=== PATIENT | female | born 1960 | race Caucasian/White ===

== ENCOUNTER → 2017-01-06 | Outpatient (CLI) | payer MEDICARE ==
[~2017-01-06] MED LIST: ATENOLOL25 MG PO; BACTRIM DS 8001 TAB PO; BUFFERIN PO; HYDROCODONE1 TABLET PO; LIPITOR20 MG PO; PHENERGAN 25MG.25 M1 PO; PLAVIX75 MG PO; ZETIA10 MG PO
[2017-01-06 09:12] LABS: BUN 13 mg/dL (7-18); GFR (ESTIMATED) 64 ML/MIN (59-)
== END ==
LOC: LAB 07:39
PROVIDERS: Nurse Practitioner Family
DX: E78.5 Hyperlipidemia, unspecified (principal)

== ENCOUNTER 2017-07-30 08:53 | Emergency (ER) | payer MEDICARE ==
[~2017-07-30] VITALS: Ht 157.5 cm; Wt 52.3 kg
[~2017-07-30 08:53] MED LIST changes: +ALENDRONATE SOD70 M1 PO; +ASPIRIN ADULT L81 M2 PO; +BENZONATATE200 MG PO; +ELIQUIS5 MG PO; +LEVAQUIN500 MG PO; +LEVOTHYROXINE0.05 MG NG; +LINZESS290 MCG PO; +PANTOPRAZOLE SO40 MG PO; +PREDNISONE 20MG20 MG PO; +PROVENTIL0.09 MG/A1 IH; +ROSUVASTATIN CA40 MG PO
--- OUTSIDE RECORDS SUMMARY | 2017-07-30 08:57 | External Medical Summary Rpt | CCD ---
Author Author , TYREL SARAH Address Unknown Phone [email or web address] Immunization Name Date Rout CVX Reac Dose Comm Prov Is Faci e tion ent ider Refu lity Give sed n Infl 10-2 Intr 150 0.5 Hist WALM No WALM uenz 5-20 amus mL oric ART5 ART5 a 17 cula al 91 91 Quad r Info Inj rmat ion - Sour ce Unsp ecif ied
--- OUTSIDE RECORDS SUMMARY | 2017-07-30 08:57 | External Medical Summary Rpt | CCD ---
Author Author , TYREL SARAH Address Unknown Phone [email or web address] Immunization Name Date Rout CVX Reac Dose Comm Prov Is Faci e tion ent ider Refu lity Give sed n Infl 10-2 Intr 150 0.5 Hist WALM No WALM uenz 5-20 amus mL oric ART5 ART5 a 17 cula al 91 91 Quad r Info Inj rmat ion - Sour ce Unsp ecif ied
--- OUTSIDE RECORDS SUMMARY | 2017-07-30 08:57 | External Medical Summary Rpt | CCD ---
Author Author , TYREL SARAH Address Unknown Phone [email or web address] Purpose Continuity of Care Document - 04-14-2016 through 2016 Problems Code Diagnosis DOS Provider Status I48.0 Paroxysmal atrial fibrillatio n I48.91 Unspecified atrial fibrillatio n R00.2 Palpitation s Z13.6 Encounter for screening for cardiovascu lar disorders Z86.73 Personal history of transient ischemic attack (TIA), and cerebral infarction without residual deficits Z86.79 Personal history of other diseases of the circulatory system Z98.89 Other specified postprocedu ral states
--- OUTSIDE RECORDS SUMMARY | 2017-07-30 08:57 | External Medical Summary Rpt | CCD ---
Author Author , TYREL SARAH Address Unknown Phone [email or web address] Purpose Continuity of Care Document - 04-14-2016 [...]
--- OUTSIDE RECORDS SUMMARY | 2017-07-30 08:58 | External Medical Summary Rpt ---
Author Author TYREL Strauss, [employer] Organization [employer] Address Unknown Phone Unavailable Results Comprehensive metabolic 2000 panel in Serum or Plasma Observa Value Referen Units Interpr Notes Date tion ce etation Range Albumin/G 1.1 - 1.8 No Normal No January 06 lobulin informati informati 2016 7:39 [Mass on in on in AM ratio] in source source Serum or data data Plasma Albumin 3.4 - 5.0 gm/dL Normal No January 06 [Mass/vol informati 2016 7:39 ume] in on in AM Serum or source Plasma data Alkaline 46 - 116 U/L Normal No January 06 phosphata informati 2016 7:39 se on in AM [Enzymati source c data activity/ volume] in Serum or Plasma Bilirubin 0.2 - 1.0 mg/dL Normal No January 06 .total informati 2016 7:39 [Mass/vol on in AM ume] in source Serum or data Plasma Urea 7 - 18 mg/dL Normal No January 06 nitrogen informati 2016 7:39 [Mass/vol on in AM ume] in source Serum or data Plasma Calcium 8.5 - mg/dL Normal No January 06 [Mass/vol 10.1 informati 2016 7:39 ume] in on in AM Serum or source Plasma data Chloride 98 - 107 mmoL/L Normal No January 06 [Moles/vo informati 2016 7:39 lume] in on in AM Serum or source Plasma data Carbon 21.0 - mmoL/L Normal No January 06 dioxide, 32.0 informati 2016 7:39 total on in AM [Moles/vo source lume] in data Serum or Plasma Creatinin 0.55 - mg/dL Normal No January 06 e 1.02 informati 2016 7:39 [Mass/vol on in AM ume] in source Serum or data Plasma Estimated 59- ML/MIN No REFERENCE January 06 informati RANGE: 2017 7:39 glomerula on in >60 AM r source ML/MIN/1. filtratio data 73 SQUARE n rate METERSIf (GF this patient is -A merican, then multiply theresult by 1.210. Globulin 1.3 - 3.2 gm/dL Normal No January 06 [Mass/vol informati 2016 7:39 ume] in on in AM Serum source data Glucose 74 - 106 mg/dL Normal No January 06 [Mass/vol informati 2016 7:39 ume] in on in AM Serum or source Plasma data Potassium 3.5 - 5.1 mmoL/L Normal No January 06 informati 2016 7:39 [Moles/vo on in AM lume] in source Serum or data Plasma Sodium 136 - 145 mmoL/L Normal No January 06 [Moles/vo informati 2016 7:39 lume] in on in AM Serum or source Plasma data Aspartate 15 - 37 U/L Normal No January 06 informati 2016 7:39 aminotran on in AM sferase source [Enzymati data c activity/ volume] in Serum or Plasma Alanine 12 - 78 U/L Normal No January 06 aminotran informati 2016 7:39 sferase on in AM [Enzymati source c data activity/ volume] in Serum or Plasma Protein 6.4 - 8.2 gm/dL Normal No January 06 [Mass/vol informati 2016 7:39 ume] in on in AM Serum or source Plasma data Lipid 1996 panel in Serum or Plasma Observa Value Referen Units Interpr Notes Date tion ce etation Range Cholester < 200 mg/dL No No January 06 ol informati informati 2016 7:39 [Moles/vo on in on in AM lume] in source source Unspecifi data data ed specimen Cholester 40 - 60 MG/DL Normal No January 06 ol in HDL informati 2016 7:39 on in AM [Mass/vol source ume] in data Serum or Plasma Cholester 0 - 130 mg/dL Normal No January 06 ol in LDL informati 2016 7:39 on in AM [Mass/vol source ume] in data Serum or Plasma by calcaston on Triglycer 30 - 200 mg/dL Normal No January 06 marcelo informati 2016 7:39 [Moles/vo on in AM lume] in source Serum or data Plasma Cholester 0 - 40 No Normal No January 06 ol in informati informati 2016 7:39 VLDL on in on in AM [Mass/vol source source ume] in data data Serum or Plasma EK EKG 12 LEAD Observa Value Referen Units Interpr Notes Date etation Range Station No No No No Apr 22 jurgen ECG informa informa informa informa 2016 tion in in in in 7:33 PM Study\. source source source source br\St. data data data data Elizabe th [employer] d\.br\I nterpre tive Stateme nts\.br \SINUS RHYTHM\ .br\MOD ERATE T-WAVE ABNORMA LITY, CONSIDE R INFERIO R/ANTER IOR ISCHEMI A\.br\E lectron ically Signed On 04-22-20 19:55:2 3 EDT by Venancio Hutchinson MD ELECTROPHYSIOLOGY PROCEDURE Observa Value Referen Units Interpr Notes Date etation Range This is No No No No Apr 22 a informa informa informa informa 2016 summary tion in in in in 6:44 PM source source source source report. data data data data The complet e report is availab le in the patient 's medical record. If you cannot access the medical record, please contact the [facility] for a detaile d fax or copy.\. br\\.br \ AF Ablatio n: PVAI\.b r\ Second RF ablatio n for atrial focus -> coronar y sinus AT\.br\ Normal H-V interva l\.br\ VA conduct ion is present EK EKG 12 LEAD Observa Value Referen Units Interpr Notes Date etation Range Station No No No No Apr 22 jurgen ECG informa informa informa informa 2016 tion in in in in 6:39 PM Study\. source source source source br\St. data data data data Elizabe th [employer] d\.br\I nterpre tive Stateme nts\.br \SINUS RHYTHM\ .br\ST DEVIATI ON AND MODERAT E T-WAVE ABNORMA LITY, CONSIDE R ANTEROL ATERAL ISCHEMI A\.br\S T DEVIATI ON AND MODERAT E T-WAVE ABNORMA LITY, CONSIDE R INFERIO R ISCHEMI A\.br\E lectron ically Signed On 04-22-20 16 19:53:3 6 EDT by Venancio Hutchinson MD ACT POC Observa Value Referen Units Interpr Notes Date tion ce etation Range ACT-LR 349 89 - second( High No Aug 30 169 s) informa 2016 tion in 5:16 PM source data ACT POC Observa Value Referen Units Interpr Notes Date tion ce etation Range ACT-LR 366 89 - second( High No Aug 30 169 s) informa 2016 tion in 4:59 PM source data ACT POC Observa Value Referen Units Interpr Notes Date tion ce etation Range ACT-LR 371 89 - second( High No Aug 30 169 s) informa 2016 tion in 4:40 PM source data ACT POC Observa Value Referen Units Interpr Notes Date tion ce etation Range ACT-LR 381 89 - second( High No Aug 30 169 s) informa 2016 tion in 4:22 PM source data ACT POC Observa Value Referen Units Interpr Notes Date tion ce etation Range ACT-LR 253 89 - second( High No Aug 30 169 s) informa 2016 tion in 4:06 PM source data ACT POC Observa Value Referen Units Interpr Notes Date tion ce etation Range ACT-LR 358 89 - second( High No Aug 30 169 s) informa 2016 tion in 3:50 PM source data ACT POC Observa Value Referen Units Interpr Notes Date tion ce etation Range ACT-LR 341 89 - second( High No Aug 30 169 s) informa 2016 tion in 3:32 PM source data ACT POC Observa Value Referen Units Interpr Notes Date tion ce etation Range ACT-LR 326 89 - second( High No Aug 30 169 s) informa 2016 tion in 3:16 PM source data Auto Diff Observa Value Referen Units Interpr Notes Date tion ce etation Range Neutrop 56.1 No % No No Mar 30 hils informa informa informa 2016 [#/volu tion in tion in tion in 11:29 me] in source source source AM Blood data data data by Automat ed count Lymphoc 29.1 No % No No Apr 22 ytes informa informa informa 2016 [#/volu tion in tion in tion in 11:29 me] in source source source AM Blood data data data by Automat ed count Monocyt 6.6 No % No No Aug 30 es informa informa informa 2015 [#/volu tion in tion in tion in 11:29 me] in source source source AM Blood data data data by Automat ed count Eos 7.3 No % No No Mar 30 Percent informa informa informa 2016 tion in tion in tion in 11:29 source source source AM data data data Baso 0.9 No % No No Mar 30 Percent informa informa informa 2016 tion in tion in tion in 11:29 source source source AM data data data Neut# 5.2 1.8 - x10(3)/ No No Mar 30 7.7 mcL informa informa 2016 tion in tion in 11:29 source source AM data data Lymph# 2.7 0.6 - x10(3)/ No No Mar 30 4.8 mcL informa informa 2016 tion in tion in 11:29 source source AM data data [place]# 0.6 0.0 - x10(3)/ No No Mar 30 1.3 mcL informa informa 2015 tion in tion in 11:29 source source AM data data Eos# 0.7 0.0 - x10(3)/ High No Mar 30 0.5 mcL informa 2015 tion in 11:29 source AM data Baso# 0.1 0.0 - x10(3)/ No No Mar 30 0.2 mcL informa informa 2016 tion in tion in 11:29 source source AM data data CBC Observa Value Referen Units Interpr Notes Date tion ce etation Range Do not repeat if done in the past 10 days. LEUKOCY 9.2 4.0 - x10(3)/ No No Mar 30 LU 11.0 mcL informa informa 2015 tion in tion in 11:29 source source AM data data Erythro 4.36 3.80 - x10(6)/ No No Mar 30 cytes 5.10 mcL informa informa 2015 [#/volu tion in tion in 11:29 me] in source source AM Blood data data by Automat ed count Hemoglo 13.6 12.0 - gm/dL No No Mar 30 bin 15.6 informa informa 2015 [Mass/v tion in tion in 11:29 olume] source source AM in data data Blood Hematoc 40.4 35.7 - % No No Apr 22 rit 45.9 informa informa 2016 [Volume tion in tion in 11:29 source source AM Fractio data data n] of Blood by Automat ed count Erythro 92.8 82.5 - fL No No Apr 22 cyte 99.8 informa informa 2016 mean tion in tion in 11:29 corpusc source source AM ular data data volume [Entiti c volume] by Automat ed count Erythro 31.1 27.0 - pg No Apr 22 cyte 34.3 informa informa 2016 mean tion in tion in 11:29 corpusc source source AM ular data data hemoglo bin [Entiti c mass] by Automat ed count Erythro 33.6 32.1 - gm/dL No Apr 22 cyte 35.3 informa informa 2016 mean tion in tion in 11:29 corpusc source source AM ular data data hemoglo bin concent ration [Mass/v olume] by Automat ed count Erythro 13.3 11.5 - % No Apr 22 cyte 15.0 informa informa 2016 distrib tion in tion in 11:29 ution source source AM width data data [Ratio] by Automat ed count Platele 257 144 - x10(3)/ No No Apr 22 ts 423 mcL informa informa 2016 [#/volu tion in tion in 11:29 me] in source source AM Blood data data by Automat ed count MPV 9.1 6.8 - fL No No Apr 22 10.8 informa informa 2016 tion in tion in 11:29 source source AM data data CT HEART STUCTURE AND MORPHOLOGY W CONTRAST Observa Value Referen Units Interpr Notes Date tion ce etation Range CT No No No No Apr 14 CORONAR informa informa informa informa 2016 Y tion in tion in tion in tion in 12:42 ANGIOGR source source source source PM AM data data data data PERFORM ED 04/14/20 16\.br\ \.br\IN DICATIO N: Atrial fibrill ation, preabla tion treatme nt plannin g study\. br\\.br \TECHNI QUE: Multide tector CT images were obtaine d through the heart with\.b r\prosp ective ECG gating followi ng the intrave nous adminis tration of 75 mL of\.br\ Isovue 370. Contras t bolus trackin mike was employe d. For optimiz ation of\.br\ anatomi c\.br\e valuati on, advance d 3-D off-carin e post-pr melia mckeon was perform ed. This\.b r\inclu ded\.br \multi- planar reconst ruction and maximum intensi ty project ions.\. br\\.br \FINDIN GS:\.br \\.br\C ORONARY ARTERIE S:\.br\ \.br\Th e study was not necessa rily intende d to assess the coronar y arterie s. The\.br \patien t has a prior history of anterio r wall myocard ial infarct ion with\.b r\coron jurgen\.br \stenti ng.\.br \\.br\L EFT:\.b r\\.br\ There is calcifi ed plaque in the distal left main, located at its\.br \trifur cation\ .br\int o LAD, ramus interme dius, and left circumf alejandra branche s. This causes\ .br\mod erate,\ .br\25- 50%, luminal stenosi s of the distal left main. The proxima l left main is\.br\ patent. \.br\\. br\Ther e is a stent or stents in the proxima l and mid LAD, which is grossly \.br\pa tent.\. br\Note is made that the proxima l LAD, located before the stent, is relativ neela\.br \small in size, measuri ng approxi mately 1.3 mm in diamete r. The distal LAD,\.b r\dista l to the stent, is also small in size.\. br\\.br \Stent in the proxima l ramus interme dius branch is also grossly patent, \.br\al though\ .br\the ramus interme dius is quite small in size distal to the stent.\ .br\\.b r\CIRCU MFLEX:\ .br\\.b r\The left circumf alejandra is small in size, ending in obtuse margina l branche s\.br\r elative ly proxima lly. Given its small size, it is difficu lt to assess. \.br\\. br\RIGH T:\.br\ \.br\Th ere is a right coronar y artery dominan t circula tion. No anomalo us\.br\ coronar y\.br\a rteries are identif ied. The mid RCA is difficu lt to assess due to motion\ .br\art ifact. At the level of motion artifac t, there are calcifi ed plaques in\.br\ the\.br \mid RCA. Luminal diamete rs and stenosi s in the mid RCA cannot be assesse d\.br\d ue to\.br\ motion. The proxima l and distal RCA appear patent however .\.br\\ .br\PER ICARDIU M:\.br\ \.br\Th ere is no abnorma l pericar dial calcifi cation. There is no pericar dial\.b r\effus ion.\.b r\\.br\ VALVES AND CHAMBER SIZES:\ .br\\.b r\Aorti c valve is trileaf let. No valve leaflet thicken ing is identif ied. The\.br \left\. br\vent ricle is normal in size. There is focal thinnin g of the myocard ium at\.br\ the\.br \apex, compati ble with prior left apical infarct and scar.\. br\\.br \No evidenc e of left atrial or left atrial appenda ge thrombu s.\.br\ \.br\Pu lmonary veins:\ .br\\.b r\Pulmo nary vein anatomy is standar d. Right superio r pulmona ry vein ostium\ .br\stephen sures 1.6 x 1.3 cm. Right inferio r pulmona ry vein ostium measure s 1.5 x\.br\1 .3\.br\ cm. Left superio r pulmona ry vein ostium measure s 1.5 x 1.2 cm. Left\.b r\infer ior\.br \pulmon jurgen vein ostium measure s 1.7 x 1.6 cm. Note is made that the\.br \descen ding\.b r\thora cic aorta lies along the posteri or aspect of the left inferio r\.br\p ulmonar y\.br\v ein ostium. The esophag us lies along the left posteri or wall of the left\.b r\atriu m.\.br\ \.br\NO N CARDIAC FINDING S IN THE CHEST:\ .br\\.b r\There are several small scatter ed ill-def ined nodular opaciti es in the\.br \includ ed\.br\ lungs bilater ally, with nodular opaciti es measuri ng up to 3 mm. For nodules \.br\of \.br\th is size, current guideli mathew recomme nd no CT follow- up if the patient is\.br\ at low\.br \clinic al risk. For patient s a high clinica l risk for lung maligna ncy,\.b r\curre nt\.br\ guideli mathew recomme nd follow- up chest CT in 12 months for nodules of this\.b r\size. \.br\\. br\No other signifi cant abnorma lities are identif ied in limited include d\.br\p ortions \.br\of adjacen t lungs and mediast inum.\. br\IMPR ESSION: \.br\1. Preabla tion treatme nt plannin g study demonst rating standar d pulmona ry\.br\ vein\.b r\anato my. Please refer to the finding s section for pulmona ry vein ostium\ .br\stephen suremen ts.\.br \2. Limited coronar y CTA demonst rates grossly patent stents in the\.br \proxim al/mid\ .br\LAD and proxima l ramus interme dius. Note is made that the LAD proxima l and\.br \distal to the stent(s ) and ramus interme dius branch distal to the stent are\.br \small in size. The left circumf alejandra is also small in size.\. br\3. Calcifi ed plaque in the distal left main causes moderat e stenosi s of\.br\ 25-50%. \.br\4. There are calcifi ed plaques in the mid RCA, which cannot be further \.br\as sessed\ .br\due to motion artifac t through the mid RCA.\.b r\5. Left apical myocard ial thinnin g, compati ble with infarct /scar.\ .br\6. Inciden eric small pulmona ry nodules , as detaile d above.
--- OUTSIDE RECORDS SUMMARY | 2017-07-30 08:58 | External Medical Summary Rpt ---
[...] the medical record, please contact the [facility] d fax or copy.\. [...] in 11:29 source source AM data data [place]# 0.6 0.0 - x10(3)/ No No Mar [...]
--- NOTE | 2017-07-30 09:33 | Urgent Treatment Center Report ---
History of Present Issue Date/Time Seen by Provider 07/30/17 7944 Visit Reason Pt arrived:Walked Presenting Problem:PT C/O OF COUGH, HEAD AND CHEST CONGESTION ON AND OFF SINCE OCTOBER Location if Accident: Onset of symptoms date/time:/ or onset unknown for:MEDICAL HX UNKNOWN Have you (or family members/close friends) recently traveled outside the [place]? N If Yes, where/when: Have you had exposure to infectious disease within the past month? TB? Other? Specify: Patient states that she has had cough, head and chest congestion now on and off since October State that she has been seen several times for this and it will go away for a short time then come back State that she has been having sinus pain and pressure along with headache on an off for several weeks State that she came in today because her cough has continued to get worse over the last few days ALLERGIES Coded Allergies: No Known Allergies (10/14/16) Home Medications Active Scripts ALBUTEROL (Proventil Hfa Inhaler) 1-2 PUFF IH Q4-6H PRN PRN SOA, wheezing #1 CAN Prov: 04/08/17 Levofloxacin (Levaquin 500MG) 500 MG PO DAILY #10 TAB Prov: 04/08/17 Prednisone (Prednisone 20MG) 20 MG PO BID #10 TAB Prov: 04/08/17 Benzonatate 200 MG PO QHSP PRN cough #14 SGL Prov: 04/08/17 Reported Medications Apixaban (Eliquis) 5 MG PO BID Linaclotide (Linzess 290MCG) 290 MCG PO DAILY Levothyroxine Sodium (Levothyroxine) 0.05 MG NG DAILY Rosuvastatin Calcium 40 MG PO DAILY Aspirin 81 MG PO DAILY Ezetimibe (Zetia) 10 MG PO DAILY Pantoprazole Sodium (Pantoprazole 40MG) 40 MG PO BID Alendronate Sodium 70 MG PO WEEKLY History Medical History General CAD? No Angina: Yes MA: Yes Hypertension? Yes Hyperlipidemia? Yes CHF? No DVT? No PE? No COPD? No Asthma? No Anemia? No GERD? No Gastric ulcers? No GI Bleed? No Hernia? No Thyroid Problems? No Hypothyroidism? No CVA? No Seizures? No Diabetes? No Renal Insuffiency? No UTI? Yes Stones? Yes BPH? No GB Disease: No Nephritic Syndrome? No Asplenia? No Hepatitis? No Sickle Cell Disease? No Arthritis? No Migraines? No Cataracts? No Glaucoma? No MRSA? No HIV? No TB? No Anxiety? No Depression? No Cancer? No Immunization HX DT/Tetanus 1-4 YRS Flu 2013-FSN Pneumonia Received In Past Surgical Hx Previous Surgery?Y Hysterect Orthopedic Orthopedic STENTS Family History Family HX Diabetes Yes CAD Yes Hypertension Yes Hyperlipidemia Yes Cancer No TB No Social History Smoking Hx Smoker: Current Every Day Smoker Tobacco: Yes Type Cigarettes Packs/day < 1 Pack Alcohol Alcohol: No Review of Systems All Other Systems Reviewed and Negative ENT nose congestion, throat pain. Respiratory cough, denies shortness of breath, denies wheezing Physical Exam Vital Signs Vital Signs Date Time Temp Pulse Resp B/P Pulse O2 O2 Flow FiO2 Ox Delivery Rate 07/30 0908 98.4 94 18 119/72 97 General Appearance normal appearance, WD/WN, no apparent distress Ear, Nose, Throat nasal congestion, Tenderness noted over frontal sinus, throat red irritated Respiratory Status Yes: trachea midline, chest symmetrical, non tender chest. No: respiratory distress. Lung Sounds bilateral: normal breath sounds, lungs clear. Cardiovascular normal exam, regular rate/rhythm, no peripheral edema Neurologic alert, normal exam, oriented x 3 Medical Decision Making LABS/Meds/Orders Pt receiving controlled substance in ED? No Results/Orders Orders Procedure Date/time Status CHEST(2 VIEWS-NOT PORTABLE) 07/30 09 Active XRAY/CT/US XRAY/CT/US XRAY chest XR interpretation by reviewed by me Xray Results no infiltrates Comment Discussed with Dr Decker Departure Departure Time of Disposition 0947 Disposition DC Home or Self Care(routine) Clinical Impression Primary Impression: Upper respiratory infection Qualifiers: URI type: unspecified URI Qualified Code: J06.9 - Acute upper respiratory infection, unspecified Condition STABLE Referrals Wilberto Phillips MD (Family): 3 Days-Call Office if no improvement Patient Instructions Cough, DI for Nasal Congestion, Sore Throat Additional Instructions * Monitor Temp. Tylenol and/or Ibuprofen as needed. ER if fever is no less than 101 despite alternating Tylenol and Ibuprofen * Encourage fluids, water, Gatorade, powerade, pedialyte if /toddler/or child * Warm salt water gargles for throat irritation *Warm fluids *Sore throat lozenges *Sleep elevated *humidifier or vaporizer Lots of rest Increase fluids, water, Gatorade, powerade *Flonase 2 sprays each nostril daily but may take 2-3 days to notice improvement with it Follow up IMMEDIATELY for new or worsening of symptoms OR no noticeable improvement over the next 48-72 hours. 911 immediately for any life threatening symptoms such as chest pain or difficulty breathing Discharge Counseling Counseled pt/family regarding diagnosis, test results, medications/RX, home care, follow up needs Prescriptions Current Visit Scripts Albuterol Sulfate (Proair Hfa) 2 PUFFS IH QID #1 INH Guaifenesin (Mucinex) 1,200 MG PO BID #20 TER Prednisone (Prednisone 20MG) 20 MG PO BID #10 TAB PROMETHAZINE/DEXTROMETHORPHAN (Promethazine-Dm Syrup) 5 ML PO Q6HP PRN cough #120 SYR Amoxicillin/Potassium Clav (Augmentin 875-125 Tablet) 1 EACH PO BID #14 TAB Fluticasone Propionate (Flonase 50 Mcg Nasal [place]) 2 SPRAY NA DAILY #1 BOT at 0956
[2017-07-30] MEDS ORDERED: ZITHROMAX Z PA250 MG PO (09:53)
[2017-07-30] MEDS ORDERED: PROMETHAZINE D118 ML PO (09:53)
[2017-07-30] MEDS ORDERED: MUCINEX1200 MG PO (09:53)
[2017-07-30] MEDS ORDERED: PROAIR HFA0.09 MG/AC IH (09:53)
[2017-07-30] MEDS ORDERED: PREDNISONE 20MG20 MG PO (09:53)
[2017-07-30] MEDS ORDERED: FLONASE 50 MCG16 GM (09:56)
[2017-07-30] MEDS ORDERED: AUGMENTIN 875-1 EACH PO (09:56)
[2017-07-30 10:00] VITALS: BP 118/77
--- NOTE | 2017-07-30 10:16 | RADIOLOGY REPORT PS360 ---
CHEST(2 VIEWS-NOT PORTABLE) HISTORY: cough and congestion ORDERING PHYSICIAN: RITA BOWDEN APRN PATIENT AGE: 57 years COMPARISON: None available FINDINGS: The cardiomediastinal silhouette and pulmonary vascularity are within normal limits. There is coronary artery stent noted The lungs are clear without infiltrates, suspicious nodules, or pleural effusions. No acute bony abnormalities. IMPRESSION: No change with no acute finding
== END 2017-07-30 10:01 | disposition home or self-care (01) ==
LOC: UTC 08:53
DX: J06.9 Acute upper respiratory infection, unspecified (principal)